=== PATIENT | female | born 1995 | race Caucasian/White ===

== ENCOUNTER → 2017-04-10 | Outpatient (CLI) | payer OTHER ==
[~2017-04-10] VITALS: Ht 152.4 cm; Wt 68.1 kg
[~2017-04-10] MED LIST: PREDNISONE50 MG PO
[2017-04-10 07:47] VITALS: BP 142/75
== END | disposition home or self-care (01) ==
LOC: IVINF 07:30
DX: O99.89 Other specified diseases and conditions complicating pregnancy, childbirth and the puerperium (principal); N93.9 Abnormal uterine and vaginal bleeding, unspecified; Z3A.00 Weeks of gestation of pregnancy not specified
CPT/HCPCS: 96372; J2790

== ENCOUNTER 2017-10-06 02:05 | Emergency (ER) | payer OTHER ==
[~2017-10-06] VITALS: Ht 152.4 cm; Wt 63.8 kg
[2017-10-06 02:41] LABS: APPEARANCE CLOUDY ((CLEAR)); BILIRUBIN NEGATIVE; BLOOD SMALL; COLOR AMBER ((YELLOW)); GLUCOSE (STRIP) NEGATIVE; KETONES NEGATIVE; LEUKOCYTES SMALL; NITRITE POSITIVE; PROTEIN (STRIP) 30; SPECIFIC GRAVITY 1.019 (1.000-1.030)
[2017-10-06 02:47] LABS: HEMATOCRIT 36.4 % (36.0-46.0); HEMOGLOBIN 12.3 G/DL (11.9-15.5); MCH 26.7 PG (29.0-34.0); MCHC 33.8 G/DL (30.0-36.0); MCV 79.1 FL (83-99); PLATELET COUNT 270 K/uL (156-360); RBC DIS.WIDTH-CV 12.3 % (11.8-14.6); RBC DIS.WIDTH-SD 35.2 % (39-53); WHITE BLOOD COUNT 12.1 K/uL (4.1-10.2)
[2017-10-06 02:49] LABS: BACTERIA RARE /HPF; EPITHELIAL CELLS RARE /HPF; MUCUS TRACE /LPF; RED BLOOD CELLS TNTC /HPF (0-5); UCUL ADDED? YES; WHITE BLOOD CELLS TNTC /HPF (0-5)
[2017-10-06 02:58] LABS: ALBUMIN 4.2 g/dL (3.2-4.8); CHLORIDE 106 mEq/L (99-109); POTASSIUM 3.5 mEq/L (3.7-5.4); SODIUM 138 mEq/L (136-147)
[2017-10-06 03:00] LABS: GLUCOSE 96 mg/dL (70-99); TOTAL PROTEIN 7.2 g/dL (6.4-8.3)
[2017-10-06 03:02] LABS: TOTAL BILIRUBIN 0.7 mg/dL (0.0-1.0)
[2017-10-06 03:04] LABS: ALKALINE PHOSPHATASE 58 IU/L (3-129); CREATININE 0.8 mg/dL (0.6-1.3); GFR ESTIMATE (CALCULATED) > 59 mL/min/
[2017-10-06 03:05] LABS: UREA NITROGEN (BUN) 11 mg/dL (9-23)
[2017-10-06 03:06] LABS: AST (GOT) 19 IU/L (2-34)
[2017-10-06 03:07] LABS: ALT (GPT) 26 IU/L (3-49)
[2017-10-06 03:14] LABS: QUANTITATIVE HCG < 4.0 MIU/ML
[2017-10-06] MEDS ORDERED: KEFLEX500 MG PO (04:04)
[2017-10-06] MEDS ORDERED: PYRIDIUM200 MG PO (04:04)
[2017-10-06] MEDS ORDERED: ZOFRAN ODT4 MG PO (04:04)
[2017-10-06 04:44] VITALS: BP 109/68
== END 2017-10-06 04:47 | disposition home or self-care (01) ==
LOC: EME 02:05
DX: N39.0 Urinary tract infection, site not specified (principal); R11.2 Nausea with vomiting, unspecified; Z87.440 Personal history of urinary (tract) infections
CPT/HCPCS: 80053; 81003; 84702; 85027; 87086; 99281; 99285; J0696; J1885; J2405; J7030